=== PATIENT | female | born 1960 | race Caucasian/White ===

== ENCOUNTER 2019-03-08 12:03 | Outpatient (CLI) | payer OTHER | END 2019-03-08 12:04 | disposition home or self-care (01) | LOC: DTY/OP 12:03 | PROVIDERS: ATTEND Surgery | DX: E66.01 Morbid (severe) obesity due to excess calories (principal) | CPT/HCPCS: 97802 ==

== ENCOUNTER 2019-03-14 16:00 | Inpatient (IN) | payer OTHER ==
[2019-03-14 16:23] VITALS: BMI 33.8
[2019-03-21] MEDS ORDERED: Fentanyl 250 MCG/5 ML VIAL ONE (06:45)
[2019-03-21] MEDS ORDERED: Bupivacaine 0.25% HCL 30 ML VIAL ONE ×2 (06:57→07:37)
[2019-03-21] MEDS ORDERED: Morphine Sulfate 2 MG/ML SYRINGE SLOW IVP PRN (07:05)
[2019-03-21] MEDS ORDERED: Promethazine HCl 25 MG/ML VIAL SLOW IVP PRN ×2 (07:05→09:22)
[2019-03-21] MEDS ORDERED: Ondansetron HCl/PF 4 MG/2 ML Vial IVP PRN ×2 (07:05→09:22)
[2019-03-21] MEDS ORDERED: Promethazine HCl 25 MG/ML VIAL IM PRN ×3 (07:05→09:22)
[2019-03-21] MEDS ORDERED: Scopolamine 1.5 mg/72 hour Patch ONE (07:22)
[2019-03-21] MEDS ORDERED: Heparin 5,000 UNITS/ML VIAL ONE (07:22)
[2019-03-21] MEDS ORDERED: Scopolamine 1.5 mg/72 hour Patch TD SCH (07:30)
[2019-03-21] MEDS ORDERED: hydrALAZINE 20 MG/ML VIAL SLOW IVP PRN (09:05)
[2019-03-21] MEDS ORDERED: Dextrose 5% in Water 1,000 ML IV PRN (09:05)
[2019-03-21] MEDS ORDERED: Dextrose 50% Abboject 50 ML SYRINGE SLOW IVP PRN (09:05)
[2019-03-21] MEDS ORDERED: Ondansetron PF 4 MG/2 ML Vial IVP PRN (09:05)
[2019-03-21] MEDS ORDERED: diphenhydrAMINE 50 MG/ML VIAL IVP PRN ×2 (09:05→09:21)
[2019-03-21] MEDS ORDERED: Hydrocodone-Acetamin 15 ML UDCUP PO PRN (09:05)
[2019-03-21] MEDS ORDERED: Promethazine HCl 25 MG/ML VIAL ONE (09:21)
[2019-03-21] MEDS ORDERED: diphenhydrAMINE 50 MG/ML VIAL IM PRN (09:21)
[2019-03-21] MEDS ORDERED: Zolpidem Tartrate 5 MG TAB PO PRN (09:21)
[2019-03-21] MEDS ORDERED: Naloxone HCl 0.4 mg/ml Vial IV PRN (09:21)
[2019-03-21] MEDS ORDERED: fentaNYL Citrate/PF 2,000 MCG in Sodium Chloride 0.9% 60 ML IV PRN (09:21)
[2019-03-21] MEDS ORDERED: diphenhydrAMINE 25 MG CAP PO PRN (09:21)
[2019-03-21] MEDS ORDERED: Communication Order-Pharmacy FS SCH (09:30)
[2019-03-21] MEDS ORDERED: Fentanyl 100 MCG/2 ML VIAL ONE (09:32)
[2019-03-21] MEDS ORDERED: Sodium Chloride 0.9% (PF) 10 ML VIAL FS PRN (09:41)
[2019-03-21] MEDS ORDERED: PROPOFOL 200 MG/20 ML VIAL ONE (09:50)
[2019-03-21] MEDS ORDERED: Ketorolac Tromethamine 30 MG/ML VIAL ONE (09:50)
[2019-03-21] MEDS ORDERED: Rocuronium Bromide 10 MG/ML (10ML VIAL) ONE (09:50)
[2019-03-21] MEDS ORDERED: Glycopyrrolate 0.2 MG/ML 5 ML SYRINGE ONE (09:50)
[2019-03-21] MEDS ORDERED: Ondansetron PF 4 MG/2 ML Vial ONE (09:50)
[2019-03-21] MEDS ORDERED: Lidocaine 1% PF 5 ML VIAL ONE (09:50)
[2019-03-21] MEDS: D5 1/2 NS w/20 mEq KCL 1,000 ML IV SCH ×3 (11:14→17:47)
[2019-03-21] MEDS: Ketorolac Tromethamine 30 MG/ML VIAL IVP SCH ×3 (11:58→23:29)
[2019-03-21] MEDS: Ondansetron PF 4 MG/2 ML Vial IVP PRN ×2 (11:58→19:03)
--- NOTE | 2019-03-21 12:35 | OP ---
DATE OF PROCEDURE: 03/21/2019 PREOPERATIVE DIAGNOSES: Lap band intolerance, morbid obesity. PROCEDURE PERFORMED: Laparoscopic removal of lap band and port with sleeve gastrectomy, esophagogastroscopy. INDICATIONS: A 59-year-old female, who had, had a lap band placed many years ago. She had done well for a few years and then was unable to maintain fill of the band to allow for any further weight loss. She gained all her weight back. FINDINGS: Quite a bit of scar tissue in the upper abdomen, which was taken down. A 38-[place] bougie used. DESCRIPTION OF PROCEDURE: After informed consent was obtained, the patient was taken to the operating room and given general endotracheal anesthesia, placed in the supine position. Abdomen was prepped and draped in usual fashion. Local anesthesia was infiltrated subcutaneously and deep. A 12-mm incision was performed approximately 8-inch below the xiphoid slight to left. Veress needle inserted. Drop test performed. Pneumoperitoneum was created to a volume of 2 L of carbon dioxide. Utilizing a bladeless 12-mm trocar and 0-degree laparoscope, direct visual entry into the abdominal cavity was performed. Pneumoperitoneum was created to a pressure of 15 mmHg and the patient placed in steep reverse Trendelenburg position. A Frankie liver retractor inserted. Left lobe of the liver retracted superiorly. The pylorus was identified. A 12-mm port placed on the right and two 12s placed left subcostal, one of which was where the port was. The lap band tubing was divided just distal to the pin, then traced down to the buckle. The buckle was dissected out using blunt and sharp dissection. The buckle was then fastened. The capsule incised and then the lap band removed from around the stomach. The lap band was removed from the abdomen. Then, the omentum was taken off the greater curvature 5 cm from the pylorus utilizing the LigaSure. Short gastrics divided with LigaSure and left crura defined with LigaSure. A 38-[place] bougie inserted directed into the antrum. The linear 60 mm green load stapler used to divide the antrum to the bougie, gold load along the bougie. Then, a blue and then another gold and then a blue through the angle of His. Intraoperative endoscopy was performed. The video endoscope was inserted under direct vision and advanced into the sleeve. The staple line inspected. There was no bleeding. Staple line then tested by inflating the new stomach with pressurized air under water. There was no air leak. Stomach decompressed. Scope removed. The remnant stomach removed from the abdomen through the left lateral port site. The lap band port was then dissected out and removed. The fascia was closed with 0 Vicryl suture and the GraNee needle. Trocars and hemostasis were assured. Trocars and retractors were removed. Subcu irrigated. Subcu closed with interrupted 3-0 Vicryl and skin closed with interrupted 4-0 Rapide. Dermabond applied. The patient tolerated the procedure well, transferred to Recovery in good condition. Sponge and needle count verified correct x2. Job ID: [id number]
[2019-03-21] MEDS: Promethazine HCl 25 MG/ML VIAL IM PRN ×2 (14:29→20:33)
[2019-03-21] MEDS: CEFAZOLIN 2 GM in Premix Bag 1 BAG IVPB SCH ×2 (14:29→23:29)
[2019-03-22 05:41] LABS: #Lymphocytes 1.4 thou/uL (1.20-3.40); #Neutrophils 7.2 thou/uL (1.40-6.50); %Basophils 0.2 % (0.0-1.0); %Eosinophils 0.1 % (0.0-10.0); %Lymphocytes 14.5 % (21.0-51.0); %Monocytes 10.4 % (0.0-10.0); %Neutrophils 74.8 % (42.0-75.0); Hemoglobin 12.4 g/dL (12.0-16.0); Mean Corpuscular HGB CONC 33.8 g/dL (32.0-36.0); Mean Corpuscular Hemoglobin 30.8 pg (27.0-31.0); Mean Corpuscular Volume 91.4 fL (78.0-98.0); Mean Platelet Volume 6.3 fL (7.4-10.4); Platelet Count 352 thou/uL (130-400); RBC Distribution Width 11.3 % (11.5-14.5); Red Blood Cell (RBC) Count 4.02 mill/uL (4.20-5.40); White Blood Cell (WBC) Count 9.6 thou/uL (4.8-10.8)
[2019-03-22] MEDS ORDERED: Enoxaparin Sodium 40 MG/0.4 ML SYRINGE SC SCH (06:00)
[2019-03-22] MEDS: Ketorolac Tromethamine 30 MG/ML VIAL IVP SCH ×3 (06:07→17:39)
[2019-03-22 06:08] LABS: Anion Gap 10 mmol/L (10-20); BUN (Urea Nitrogen) 8 mg/dL (9.8-20.1); Calc. Creatinine Clearance 108 mL/min (70-130); Calcium 8.6 mg/dL (7.8-10.44); Carbon Dioxide 26 mmol/L (22-29); Chloride 107 mmol/L (98-107); Estimated GFR-MDRD 83; Glucose 117 mg/dL (70-105); Potassium 4.1 mmol/L (3.5-5.1); Sodium 139 mmol/L (136-145)
[2019-03-22] MEDS: D5 1/2 NS w/20 mEq KCL 1,000 ML IV SCH ×3 (06:08→17:48)
[2019-03-22] MEDS: Ondansetron PF 4 MG/2 ML Vial IVP PRN (06:10)
--- NOTE | 2019-03-22 07:49 | PRG ---
DATE OF SERVICE: 03/22/2019 SUBJECTIVE: The patient had a lot of nausea last night. She complains of pain on the left side. OBJECTIVE: VITAL SIGNS: On examination, her temperature is 98.5, pulse 77, and blood pressure 112/73. GENERAL: She is awake, alert, in no apparent distress. ABDOMEN: Soft, nondistended. The incisions are healing well. LABORATORY DATA: Her white count is 9.6, H and H of 12 and 36, and platelet count 352. Electrolytes are fine. Elevated glucose at 117. ASSESSMENT: Postoperative edema. PLAN: We will check a Gastrografin swallow. Job ID: [id number]
[2019-03-22] MEDS ORDERED: Pantoprazole 40 MG VIAL IVP SCH (09:00)
--- NOTE | 2019-03-22 10:06 | RAD ---
[facility] HISTORY: Bariatric surgery. FINDINGS: Single column contrast evaluation shows postoperative changes of the stomach consistent wit h gastric sleeve procedure. GE junction is patulous and widely patent. No evidence of obstruction or leak.
[2019-03-22] MEDS ORDERED: GASTROGRAFIN 30 ML BOT ONE (13:13)
--- NOTE | 2019-03-22 14:09 | DIS ---
DATE OF ADMISSION: 03/21/2019 DATE OF DISCHARGE: 03/22/2019 DISCHARGE DIAGNOSIS: Morbid obesity. PROCEDURES DURING ADMISSION: Laparoscopic removal of band and port, sleeve gastrectomy, intraoperative esophagogastroscopy, and postoperative Gastrografin swallow. HOSPITAL COURSE: The patient was admitted, taken to the operating room, where she underwent laparoscopic removal of her lap band and port conversion to sleeve, intraoperative EGD. Postop, further x-ray is fine. She was started on liquids. She is tolerating well. She is discharged home on hydrocodone and Zofran. She will follow up with me in 2 weeks. Job ID: [id number]
[2019-03-22 16:00] VITALS: BP 112/77; TEMP 99
[2019-03-23] MEDS ORDERED: Enoxaparin Sodium 40 MG/0.4 ML SYRINGE SC SCH (09:00)
== END 2019-03-22 18:29 | disposition home or self-care (01) | DRG 621 ==
LOC: SURG A 03-21 05:30 → SURG B 03-21 11:11
PROVIDERS: ADMIT Surgery; ATTEND Surgery
PROC: 0DB64Z3 Excision of Stomach, Percutaneous Endoscopic Approach, Vertical (ICD-10-PCS; principal; 2019-03-21)
PROC: 0DP64CZ Removal of Extraluminal Device from Stomach, Percutaneous Endoscopic Approach (ICD-10-PCS; 2019-03-21)
PROC: 0DJ08ZZ Inspection of Upper Intestinal Tract, Via Natural or Artificial Opening Endoscopic (ICD-10-PCS; 2019-03-21)
DX: E66.01 Morbid (severe) obesity due to excess calories (principal); G43.909 Migraine, unspecified, not intractable, without status migrainosus; J30.2 Other seasonal allergic rhinitis; F32.9 Major depressive disorder, single episode, unspecified; R60.9 Edema, unspecified; Z87.891 Personal history of nicotine dependence; Z68.34 Body mass index [BMI] 34.0-34.9, adult
CPT/HCPCS: 36415; 74241; 80048; 85025; 88307; 88312; 94760; C9113; J0690; J1644; J1650; J1885; J2001; J2405; J2550; J2704; J3010; Q9963; S0020